=== PATIENT | male | born 1950 | race Two or more races ===

== ENCOUNTER → 2022-12-28 | Emergency (ER) | payer OTHER, MEDICAID ==
[~2022-12-28] VITALS: Ht 180.3 cm; Wt 86.0 kg
[2022-12-28 11:06] VITALS: BP 132/68
== END | disposition left against medical advice (07) ==
LOC: EDBD 10:57 → ER 10:57
DX: R53.1 Weakness (principal); R55 Syncope and collapse; Z53.21 Procedure and treatment not carried out due to patient leaving prior to being seen by health care provider